=== PATIENT | male | born 1940 | race Caucasian/White ===

== ENCOUNTER 2025-01-18 10:46 | Inpatient (IN) | payer MEDICARE, OTHER ==
[~2025-01-18] VITALS: Ht 177.8 cm; Wt 83.9 kg
[2025-01-18 13:18] VITALS: BP 149/57; TEMP 97.9
[2025-01-18 13:39] VITALS: BP 149/57; TEMP 97.9
[2025-01-19 14:38] VITALS: BP 108/66; TEMP 97.4; O2SAT 96
[2025-01-19] MEDS ORDERED: CEFT1FRO2 IV (15:07)
[2025-01-19] MEDS ORDERED: ACET325T53 PO (15:09)
[2025-01-19] MEDS ORDERED: AMLO-212 PO (15:10)
[2025-01-19] MEDS ORDERED: ALBU2.5V13 NEB (15:10)
[2025-01-19] MEDS ORDERED: ALLO100T56 PO (15:10)
[2025-01-19] MEDS ORDERED: ATOR20TA PO (15:11)
[2025-01-19] MEDS ORDERED: ASPI81TA31 PO (15:11)
[2025-01-19] MEDS ORDERED: CARB15DR EACHEYE (15:12)
[2025-01-19] MEDS ORDERED: CYAN-51 PO (15:13)
[2025-01-19] MEDS ORDERED: DOCU100C36 PO (15:14)
[2025-01-19] MEDS ORDERED: DEXT50DI8 IV (15:14)
[2025-01-19] MEDS ORDERED: ROBITUSSIN DM PO (15:17)
[2025-01-19] MEDS ORDERED: HYDR-4209 PO (15:17)
[2025-01-19] MEDS ORDERED: INSU100V28 SQ (15:20)
[2025-01-19] MEDS ORDERED: BLOO-360 METER (15:21)
[2025-01-19] MEDS ORDERED: IPRA0.2S6 NEB (15:30)
[2025-01-19] MEDS ORDERED: MAG30ORA PO (15:31)
[2025-01-19] MEDS ORDERED: MAGN400O6 PO (15:32)
[2025-01-19] MEDS ORDERED: MAGN400C PO (15:33)
[2025-01-19] MEDS ORDERED: LINA72CA PO (15:33)
[2025-01-19] MEDS ORDERED: POLY17PO4 PO (15:34)
[2025-01-19] MEDS ORDERED: PANT40TA49 PO (15:34)
[2025-01-19] MEDS ORDERED: TAMS-3 PO (15:36)
[2025-01-19] MEDS ORDERED: PSYL575P22 PO (15:36)
[2025-01-19] MEDS ORDERED: TEMA15CA PO (15:37)
[2025-01-19] MEDS ORDERED: Z-GUARD TOP (15:38)
[2025-01-19] MEDS ORDERED: HYDR-894 PO (15:38)
[2025-01-19] MEDS ORDERED: ALBUTEROL SULFATE 2.5 MG/ 0.5 ML NEBU NEB PRN (18:15)
[2025-01-19] MEDS ORDERED: INSULIN REGULAR, HUMAN 1000 UNIT/10 ML VIAL SQ PRN (18:15)
[2025-01-19] MEDS ORDERED: DEXTROSE 50% 50 ML DISP.SYRIN IV PRN ×2 (18:15→18:30)
[2025-01-19] MEDS ORDERED: IPRATROPIUM BROMIDE 0.5 MG/2.5 ML NEBU NEB PRN (18:15)
[2025-01-19] MEDS ORDERED: HYDROCODONE/APAP 5-325MG TABLET PO PRN (18:15)
[2025-01-19] MEDS ORDERED: Medication Not On Formulary EA ([Z-Guard] 1 APPLIC) TOP PRN (18:15)
[2025-01-19] MEDS ORDERED: MAG HYDROX/AL HYDROX/SIMETH 30 ML LIQUID UDC PO PRN (18:15)
[2025-01-19] MEDS ORDERED: TEMAZEPAM 15 MG CAPSULE PO PRN (18:15)
[2025-01-19] MEDS ORDERED: ROBITUSSIN DM PO PRN (18:15)
[2025-01-19] MEDS ORDERED: ACETAMINOPHEN 325 MG TABLET-SA PATIENTS-PAIN ONLY PO PRN (18:15)
[2025-01-19] MEDS ORDERED: REMEDY ESSENTIAL ZINC PASTE 113 GM TOP PRN (18:45)
[2025-01-19 19:56] VITALS: BP 153/68; TEMP 99; O2SAT 96
[2025-01-19] MEDS: MAGNESIUM HYDROXIDE 30 ML LIQUID UDC PO PRN (20:14)
[2025-01-19] MEDS: TAMSULOSIN HCL 0.4 MG CAP.SR.24H PO SCH (20:14)
[2025-01-19] MEDS: ATORVASTATIN 20 MG TABLET PO SCH (20:14)
[2025-01-19] MEDS: BLOOD SUGAR DIAGNOSTIC 1 EACH STRIP VI SCH (20:21)
[2025-01-19] MEDS: INSULIN REGULAR, HUMAN 1000 UNIT/10 ML VIAL SQ PRN (20:25)
[2025-01-19] MEDS ORDERED: BLOOD SUGAR DIAGNOSTIC 1 EACH STRIP VI SCH (21:00)
[2025-01-20 05:11] VITALS: BP 130/73; TEMP 98.5; O2SAT 96
[2025-01-20] MEDS: ACETAMINOPHEN 325 MG TABLET PO PRN (06:11)
[2025-01-20 07:18] LABS: PLATELET COUNT (AUTO) 222 K/uL (152-348); RED BLOOD CELL COUNT(AUTO) 3.20 MIL/uL (4.06-5.63); RED CELL DISTRIBUTION WIDTH 13.2 % (12.1-16.2); WHITE BLOOD COUNT (AUTO) 7.1 K/uL (3.6-10.2)
[2025-01-20 07:48] LABS: IRON, SERUM 46 ug/dL (50-175)
[2025-01-20 08:10] LABS: ASPARTATE AMINOTRANSFERASE 8 U/L (15-37); CREATININE 1.2 mg/dL (0.6-1.3); SODIUM SERUM 135 mmol/L (136-145); TOTAL PROTEIN, SERUM 6.7 g/dL (6.4-8.2); UREA NITROGEN, BLOOD 20 mg/dL (7-18)
[2025-01-20] MEDS: ALLOPURINOL 100 MG TABLET PO SCH (08:28)
[2025-01-20] MEDS: DOCUSATE SODIUM 100 MG CAPSULE PO SCH (08:28)
[2025-01-20] MEDS: PANTOPRAZOLE SODIUM 40 MG TABLET.DR PO SCH (08:28)
[2025-01-20] MEDS: ASPIRIN 81 MG TAB.CHEW PO SCH (08:28)
[2025-01-20] MEDS: PSYLLIUM SEED PACKET PO SCH (08:28)
[2025-01-20] MEDS: MAGNESIUM OXIDE 400 MG TABLET PO SCH (08:28)
[2025-01-20] MEDS: MIRALAX 17 GM POWD.PACK PO SCH (08:28)
[2025-01-20] MEDS: CYANOCOBALAMIN 1,000 MCG TABLET PO SCH (08:28)
[2025-01-20 08:30] VITALS: BP 118/58; TEMP 98.3; O2SAT 98
[2025-01-20] MEDS ORDERED: PSYLLIUM HUSK PO SCH (09:00)
[2025-01-20] MEDS ORDERED: [UNRECOGNIZED DRUG - OTHER] PO SCH (09:00)
[2025-01-20] MEDS: AMLODIPINE 5 MG TABLET PO SCH ×2 (09:21→20:00)
[2025-01-20] MEDS: LINZESS 72 MCG PO SCH (15:35)
[2025-01-20 20:00] VITALS: BP 194/76; TEMP 97.6; O2SAT 97
[2025-01-20 21:06] VITALS: BP 135/66; TEMP 98.8; O2SAT 98
[2025-01-20] MEDS: GUAIFENESIN/DEXTROMETHORPHAN 5 ML UDC PO PRN (22:18)
[2025-01-21 04:27] VITALS: BP 140/58; TEMP 98.7; O2SAT 98
[2025-01-21 08:30] VITALS: BP 169/85; TEMP 98.3; O2SAT 98
[2025-01-21] MEDS: MAGNESIUM CITRATE 296 ML BOTTLE PO ONE (17:54)
[2025-01-21] MEDS: BISACODYL 5 MG TABLET.DR PO ONE ×2 (18:45→21:38)
[2025-01-21 19:30] VITALS: BP 159/73; TEMP 98.1; O2SAT 97
[2025-01-21] MEDS ORDERED: AMLODIPINE 5 MG TABLET PO SCH (21:00)
[2025-01-21] MEDS: AMLODIPINE 5 MG TABLET PO SCH (21:10)
[2025-01-21] MEDS: MELATONIN 3 MG TABLET PO SCH (22:27)
[2025-01-22 07:03] VITALS: BP 97/46; TEMP 98.3; O2SAT 97
[2025-01-22 08:11] VITALS: BP 103/58; TEMP 97.1; O2SAT 97
[2025-01-22 08:23] VITALS: BP 144/55; TEMP 97.2; O2SAT 98
[2025-01-22] MEDS ORDERED: PANTOPRAZOLE SODIUM 40 MG TABLET.DR PO SCH (10:58)
[2025-01-22 12:36] VITALS: BP_SYST 119; BP_SYST 125; BP_SYST 135; BP_DIAS 54; BP_DIAS 60
[2025-01-22 16:00] VITALS: BP 150/55; TEMP 97.7; O2SAT 18
[2025-01-22] MEDS: VALACYCLOVIR HCL 500 MG TABLET PO SCH (16:39)
[2025-01-22 20:00] VITALS: BP 117/50; TEMP 98.3; O2SAT 98
[2025-01-22] MEDS ORDERED: GUAIFENESIN/DEXTROMETHORPHAN 5 ML UDC PO PRN (22:30)
[2025-01-22] MEDS ORDERED: ALBUTEROL SULFATE 2.5 MG/3 ML NEBU NEB PRN (22:30)
[2025-01-23 06:00] VITALS: BP 168/62; TEMP 97.3; O2SAT 95
[2025-01-23] MEDS: PANTOPRAZOLE SODIUM 40 MG TABLET.DR PO SCH (06:39)
[2025-01-23 07:37] VITALS: BP 155/67; TEMP 97.4; O2SAT 97
[2025-01-23] MEDS: ASPIRIN EC 81 MG TABLET.DR PO SCH (08:11)
[2025-01-23 08:23] LABS: PLATELET COUNT (AUTO) 314 K/uL (152-348); RED BLOOD CELL COUNT(AUTO) 3.19 MIL/uL (4.06-5.63); RED CELL DISTRIBUTION WIDTH 13.4 % (12.1-16.2); WHITE BLOOD COUNT (AUTO) 6.9 K/uL (3.6-10.2)
[2025-01-23 09:01] LABS: ASPARTATE AMINOTRANSFERASE 14 U/L (15-37); CREATININE 1.2 mg/dL (0.6-1.3); SODIUM SERUM 137 mmol/L (136-145); TOTAL PROTEIN, SERUM 7.0 g/dL (6.4-8.2); UREA NITROGEN, BLOOD 26 mg/dL (7-18)
[2025-01-23 13:25] LABS: *BILIRUBIN,URIN NEGATIVE (NEGATIVE); *BLOOD, URINE NEGATIVE (NEGATIVE); *CLARITY,URINE CLEAR (CLEAR); *COLOR,URINE YELLOW (YELLOW); *KETONES,URINE NEGATIVE (NEGATIVE); *PROTEIN,URINE 3+ (NEGATIVE); *UROBILINOGEN,URINE 0.2 E.U./dl (NORMAL); LEUKOCYTE ESTERASE ,URINE NEGATIVE (NEGATIVE); NITRITE, URINE NEGATIVE (NEGATIVE); UGLUCOSE 1+ (NEGATIVE)
[2025-01-23 16:00] VITALS: BP 121/42; TEMP 97.8; O2SAT 97
[2025-01-23] MEDS: NITROFURANTOIN/NITROFURAN MAC 100 MG CAPSULE PO SCH (16:22)
[2025-01-23 19:30] VITALS: BP 107/56; TEMP 98; O2SAT 96
[2025-01-24 06:00] VITALS: BP 156/65; TEMP 98.6; O2SAT 97
[2025-01-24 07:45] VITALS: BP 103/52; TEMP 98.2; O2SAT 98
[2025-01-24] MEDS: BENZOCAINE ORAL CARE 12 ML BOTTLE MM PRN (11:45)
[2025-01-24 16:33] VITALS: BP 157/63; TEMP 98.4; O2SAT 97
[2025-01-24] MEDS: FLUCONAZOLE 200 MG TABLET PO ONE (18:36)
[2025-01-24 19:55] VITALS: BP 165/61; TEMP 98.4; O2SAT 98
[2025-01-24] MEDS: DOXYCYCLINE HYCLATE 100 MG TABLET PO SCH (20:31)
[2025-01-25 05:01] VITALS: BP 140/52; TEMP 98.6; O2SAT 98
[2025-01-25 15:33] VITALS: BP 103/61; TEMP 98.5; O2SAT 100
[2025-01-25 17:48] VITALS: O2SAT 97
[2025-01-25 20:00] VITALS: BP 115/61; TEMP 98.3; O2SAT 98
[2025-01-26 05:55] VITALS: BP 141/65; TEMP 98.2; O2SAT 99
[2025-01-26 08:00] VITALS: BP 148/60; TEMP 98.2; O2SAT 99
[2025-01-26 08:33] VITALS: BP 148/60
== END 2025-01-26 13:25 | disposition home health service (06) | DRG 193 ==
LOC: UNDOADMIN 01-19 13:32
PROVIDERS: ADMIT Physical Medicine & Rehabilitation Pain Medicine; ATTEND Physical Medicine & Rehabilitation Pain Medicine
DX: J18.9 Pneumonia, unspecified organism (principal); G92.8 Other toxic encephalopathy; N17.0 Acute kidney failure with tubular necrosis; J44.0 Chronic obstructive pulmonary disease with (acute) lower respiratory infection; N39.0 Urinary tract infection, site not specified; D68.59 Other primary thrombophilia; R53.1 Weakness; D64.9 Anemia, unspecified; E11.22 Type 2 diabetes mellitus with diabetic chronic kidney disease; I12.9 Hypertensive chronic kidney disease with stage 1 through stage 4 chronic kidney disease, or unspecified chronic kidney disease; E86.9 Volume depletion, unspecified; N18.9 Chronic kidney disease, unspecified; N40.0 Benign prostatic hyperplasia without lower urinary tract symptoms; B00.1 Herpesviral vesicular dermatitis; E66.9 Obesity, unspecified; Z68.26 Body mass index [BMI] 26.0-26.9, adult; F03.90 Unspecified dementia, unspecified severity, without behavioral disturbance, psychotic disturbance, mood disturbance, and anxiety; E11.65 Type 2 diabetes mellitus with hyperglycemia; E78.5 Hyperlipidemia, unspecified; I70.0 Atherosclerosis of aorta; K21.9 Gastro-esophageal reflux disease without esophagitis; K59.00 Constipation, unspecified; M19.90 Unspecified osteoarthritis, unspecified site; M10.9 Gout, unspecified
CPT/HCPCS: 36415; 71045; 83550; 83735; 84100; 84443; 85025; 87086; 97535-GO-CO; A9150; J0696; J1815; J8499